=== PATIENT | male | born 1945 | race Caucasian/White ===

== ENCOUNTER 2016-08-23 08:14 | Inpatient (IN) | payer MEDICARE, OTHER ==
[2016-08-23] VITALS (14 sets, daily range): BP systolic 97–207; BP diastolic 60–108; PULSE 54–86; RESP 12–25; O2SAT 95–100
[~2016-08-23] VITALS: Ht 190.5 cm; Wt 110.6 kg
--- NOTE | 2016-08-23 08:11 | ED.REPORT ---
HPI-Cardiac Arrest Date of Service Aug 23, 2016 ED Provider: Dr. Stallworth Pt is 71 year old male with a history of COPD and CHF who presents to the ED via EMS, intubated, post cardiac arrest. Per EMS, he was with his on the way to a doctors appointment when he became extremely weak and collapsed. His contacted paramedics, but did not begin CPR. Upon first evaluation he was in asystolic cardiac arrest and no shock was advised. CPR was started and he was given 2 of epinephrine, Solu-Medrol and 5 of versed. He was intubated successfully and presents with an IO but no peripheral line. EMS report that he was brought to the ED recently with a respiratory arrest. Pt remains intubated and is unable to give a further history. Nursing Notes Stated Complaint: POST CARDIAC ARREST Chief Complaint: Post Cardiac Arrest Nursing Notes Reviewed: Yes Allergies: Coded Allergies: No Known Allergies (Unverified , 02/23/10) Scheduled Albuterol HFA (Proair HFA) 8.5 Gm Hfa.aer.ad 2 PUFFS INHALATION BID Amlodipine (Amlodipine) 5 Mg Tablet 2.5 MG PO DAILY Apixaban (Eliquis) 5 Mg Tablet 5 MG PO BID Atorvastatin (Lipitor) 80 Mg Tablet 80 MG PO DAILY Budesonide/Formoterol 160-4.5 mcg Inh (Symbicort 160-4.5 mcg Inh) 120 Puff Inhaler 2 PUFF INHALATION BID Carvedilol (Carvedilol) 12.5 Mg Tablet 25 MG PO BID Chlorthalidone (Chlorthalidone) 25 Mg Tablet 25 MG PO DAILY Morphine Sulfate ER (Morphine Sulfate ER) 15 Mg Tablet 45 MG PO BID Prednisone (Deltasone) 20 Mg Tablet 40 MG PO DAILY Scheduled PRN Morphine Sulfate (Morphine Sulfate) 15 Mg Tablet 15 MG PO Q3 PRN PRN For Moderate Pain General Time Seen by Provider: 08:14 Chief Complaint Cardiac arrest, found dwn Total Time Arrest to Arrival: 1 - 20 min Context: Resuscitation: Initial rhythm asystole Hx Obtained From: EMS Arrived By: Ambulance Onset Occurred: Just prior to arrival Symptom Duration: Since onset Similar Sx Previous: Yes Past Medical History Past Medical History COPD Diabetes CAD Emphesyma CHF History of intubation due to respiratory failure Past Surgical History Stent x1 Smoking History Former Smoker Ambulatory Status Independent Review of Systems Unable to Obtain ROS Intubated Physical Exam Initial Vital Signs Vital Signs (First) Date Time Temp Pulse Resp B/P Pulse Ox O2 Delivery O2 Flow Rate FiO2 08/23/16 09:37 99 08/23/16 10:55 34.5 86 119/70 Mechanical Ventilator 70 See Paper Chart Initial VS: Reviewed Alertness: Positive: Sedated, Unresponsive Intubated Resp Distress / Stridor: Positive: Intubated Diminished breath sounds on the left Cardiovascular: Heart rate NL, Regular rhythm, Heart sounds NL, No murmurs, Peripheral circulation NL Abdomen: Atraumatic, Soft Head / Eyes: Atraumatic, Normocephalic 3mm reactive Neck: Atraumatic Skin: Atraumatic, No rash, Warm, Dry Mental Status: Positive: Pharmacologically sedated, Unresponsive Interpretation & Diagnostics Lab Results Interpretation Result Diagram: 08/23/16 0820 08/23/16 0820 Test 08/23/16 08:20 08/23/16 08:39 08/23/16 08:46 White Blood Count 16.8th/mm3 (3.8-10.1) Red Blood Count 4.97mil/mm3 (4.40-5.80) Hemoglobin 14.3g/dL (13.8-17.2) Hematocrit 45.3% (41.0-50.0) Mean Corpuscular Volume 91.1fL (81-100) Mean Corpuscular Hemoglobin 28.8pg (27.0-35.0) Mean Corpuscular Hemoglobin Concent 31.6% (32.0-37.0) Red Cell Distribution Width 13.8% (12.3-15.4) Platelet Count 299bil/L (150-400) Neutrophils (%) (Auto) 60.7% (40-74) Lymphocytes (%) (Auto) 24.0% (14-46) Monocytes (%) (Auto) 11.3% (4-12) Eosinophils (%) (Auto) 2.0% (0-5) Basophils (%) (Auto) 0.3% (0-3) Prothrombin Time 10.2sec (8.1-12.5) Prothromb Time International Ratio 0.95ratio Magnesium Level 2.2mg/dL (1.6-2.6) Total Creatine Kinase 103U/L (21-232) Creatine Kinase MB 2.7ng/mL (0.0-10.4) Creatine Kinase MB % % (0.0-5.0) Troponin T 0.010ug/L (0.0-0.011) Pro-B-Type Natriuretic Peptide 1081pg/mL (0-376) Procalcitonin 0.05ng/mL (0.00-0.08) Hold Sylvester Top Tube Received (Received) Hold Urine Received (Received) General Lab Results Interp 1: Labs reviewed ECG Interpretation ECG Interpretation: Atrial flutter - 85 LBBB Time: 08:34 Interpreted by: ED physician X-Ray Chest Interpretation Chest Xray Interpretation: IMPRESSION: Endotracheal tube position normal, COPD. Chronic interstitial prominence, no pneumothorax or acute CHF found. Dictated by: Abhilash Chau M.D. on 08/23/2016 at 9:00 View: Portable, 1 view Interpretation / Wet Read by: Interpret - Radiologist CT Head Interpretation IMPRESSION: No trauma found, no hemorrhage or mass identified. Source of current symptoms is not seen. Moderate microvascular atherosclerotic change in the deep white matter of each hemisphere, previously present. Dictated by: Abhilash Chau M.D. on 08/23/2016 at 9:25 Study: Head CT no contrast Interpretation / Wet Read by: Interpret - Radiologist Procedures Arterial line attempted multiple times in R radial artery which was not successful. Maximum precautions. Central Line Placement Central Line Placement Note: Central line placed by Dr. Calhoun, directly supervised by myself. Time: 09:23 Procedure Performed by: ED resident Consent / Setup / Site Prep: No consent - emergent, Time-out performed, Needle aspirate performed, Oxygen administered, Pulse oximeter applied, patient monitor applied, Hand hygiene observed, Standard surgical scrub, Max barrier precaution, Sterile drapes applied, Position supine Skin Preparation Agent: Shurclens Local Anesthesia: Lidocaine 1% Side / Location / Ultrasound: Internal jugular right, Ultrasound assisted Catheter / Lumen / Technique: Catheter size, Triple lumen, Good blood return , Other Re-Eval/Medical Decision Source of Hx: Old records, Inletter Re-Evaluation/Progress #1: Time of Eval: 08:45 Re-Evaluation/Progress Note: Pt is rechecked, he is beginning to regain consciousness. He is able to open his eyes for a brief period of time. Re-Evaluation/Progress #2: Time of Eval: 09:30 Re-Evaluation/Progress Note: Intermittent spasm every 1-2 minutes of eyes opening, flexor spasm diffusely, thought to be seizure or shivering. Consultation #1: Referral / Consult Name: Marcia Cabrales MD Consulted With: Cardiology Call Returned at: 08:53 Customer Service Security Officer: Will see patient, Agrees with eval, Agrees with plan Consultation #2: Referral / Consult Name: Kristian Patterosn MD Consulted With: Anesthesia Call Returned at: 10:27 Customer Service Security Officer: Will see patient, Agrees with eval, Agrees with plan (Will start Art line and change ET tube ) Consultation #3: Referral / Consult Name: Demetri Bose MD Consulted With: Hospitalist Call Returned at: 11:07 Customer Service Security Officer: Will see patient, Agrees with eval, Agrees with plan, Accepts admit Counseled Regarding: Diagnosis, Lab results, Need for admission Discharge & Departure Impression: Primary Impression: Cardiopulmonary arrest Disposition: ADMITTED TO HOSPITAL All VS Reviewed: Yes Referrals: Melissa Perdue MD (PCP) Crit Care Except Billable Proc Time Spent: 30-74 minutes Services Performed: Patient management by me, Time spent at bedside, Reviewing test results, Reviewing imaging, Discussing patient care, Documentation in record, Time with fam/surrogate Scribe Attestation Portions of this note were transcribed by Madeline Davidson and Ann Lee. I, Dr. Stallworth personally performed the history, physical exam and medical decision-making; I reviewed and confirmed the accuracy of the information in the transcribed note. Signed by: Madeline Davidson and Bob Blackmon, 2016 1048 copies to: Melissa Perdue MD, Kirk H MD Aug 23, 2016 08:11 GEE DAVIDSON Aug 23, 2016 08:22 Ann Lee Aug 23, 2016 09:23 Intermittent spasm every 1-2 minutes of eyes opening, flexor spasm diffusely, thought to be seizure or shivering. Consultation #1: Referral / Consult Name: Marcia Cabrales MD Consulted With: Cardiology Call Returned at: 08:53 Customer Service Security Officer: Will see patient, Agrees with eval, Agrees with plan Consultation #2: Referral / Consult Name: Kristian Patterson MD Consulted With: Anesthesia Call Returned at: 10:27 Customer Service Security Officer: Will see patient, Agrees with eval, Agrees with plan (Will start Art line and change ET tube ) Consultation #3: Referral / Consult Name: Demetri Bose MD Consulted With: Hospitalist Call Returned at: 11:07 Customer Service Security Officer: Will see patient, Agrees with eval, Agrees with plan, Accepts admit Counseled Regarding: Diagnosis, Lab results, Need for admission Discharge & Departure Impression: Primary Impression: Cardiopulmonary arrest Disposition: ADMITTED TO HOSPITAL All VS Reviewed: Yes Referrals: Melissa Perdue MD (PCP) Crit Care Except Billable Proc Time Spent: 75-104 minutes Services Performed: Patient management by me, Time spent at bedside, Reviewing test results, Reviewing imaging, Discussing patient care, Documentation in record, Time with fam/surrogate Scribe Attestation Portions of this note were transcribed by Madeline Davidson and Ann Lee. I, Dr. Stallworth personally performed the history, physical exam and medical decision-making; I reviewed and confirmed the accuracy of the information in the transcribed note. Signed by: Madeline Davidson and Bob Blackmon, 2016 1048 copies to: Melissa Perdue MD, Kirk H MD Aug 23, 2016 08:11 GEE DAVIDSON Aug 23, 2016 08:22 Ann Lee Aug 23, 2016 09:23
[~2016-08-23 08:14] MED LIST: ALBU8.5H2 INHALATION; AMLO5TAB2 PO; APIX5TAB PO; ATOR80TA PO; CARV12.52 PO; HYG25 PO; MORP-32 PO; MORP15TA PO; PRED-508 PO; SYMINH INHALATION
[2016-08-23 08:35] LABS: BASOPHILS % (AUTO) 0.3 % (0-3); MONOCYTES % (AUTO) 11.3 % (4-12); Mean Corpuscular Hemoglobin 28.8 pg (27.0-35.0); Mean Corpuscular Volume 91.1 fL (81-100); NEUTROPHILS % (AUTO) 60.7 % (40-74); Platelet Count 299 bil/L (150-400)
[2016-08-23 08:54] LABS: TROPONIN T 0.01 ug/L (0.0-0.011)
--- NOTE | 2016-08-23 09:03 | DRSVH ---
PROCEDURE: X-RAY CHEST ONE VIEW, PORTABLE ([id number]) INDICATIONS: resp faiure TECHNIQUE: One view of the chest was acquired. COMPARISON: [facility], CR, XR CHEST 2VW, 07/03/2016, 16:10. [facility], CR, XR CHEST 2VW, 06/26/2016, 9:38. FINDINGS: Surgical changes and devices: Endotracheal tube in normal position, some form of monitoring device ov erlies the mid heart.. Lungs and pleura: No pleural effusions or pneumothorax. Lungs are abnormal with COPD previously doc umented and a chronic interstitial prominence. Mediastinum: Mediastinal contours appear normal. Heart size is normal. Bones and chest wall: No suspicious bony lesions. Overlying soft tissues appear unremarkable. IMPRESSION: Endotracheal tube position normal, COPD. Chronic interstitial prominence, no pneumothora x or acute CHF found. Dictated by: Abhilash Chau M.D. on 08/23/2016 at 9:00 Approved by: Abhilash Chau M.D. on 08/23/2016 at 9:01
[2016-08-23 09:04] LABS: Magnesium 2.2 mg/dL (1.6-2.6)
[2016-08-23] MEDS ORDERED: Acetaminophen IV 1,000 MG in IV Premix 1 EACH IV ONE (09:25)
[2016-08-23] MEDS ORDERED: Piperacillin-Tazo 3.375 Gm Inj 3.375 GM in Dextrose 5% Minibag Plus 50 ML IV ONE (09:25)
[2016-08-23] MEDS ORDERED: Magnesium Sulf 4 Gm/100 mL H2O 4 GM in IV Premix 1 EACH IV ONE (09:25)
--- NOTE | 2016-08-23 09:26 | DRSVH ---
PROCEDURE: CT BRAIN WITHOUT CONTRAST ([id number]) INDICATIONS: cardio pulmonray arrest TECHNIQUE: Noncontrast 4.5 mm thick angled axial sections acquired from the foramen magnum to the vertex, with c oronal reformats. COMPARISON: [facility], CT, CT BRAIN WO CON, 04/11/2016, 13:10. FINDINGS: Image quality: Excellent. CSF spaces: Basal cisterns are patent. No extra-axial fluid collections. The ventricles are symmet vinnie in size and shape. Brain: No intracranial bleeds or masses. There is cerebral volume loss for age, with resultant vent ricular and sulcal prominence. There are periventricular and deep white matter chronic small vessel ischemic changes. There is intracranial internal carotid artery atherosclerosis. Skull and face: Calvarium and visualized facial bones appear intact, without suspicious lesions. Sinuses: Visualized sinuses and mastoids are clear. IMPRESSION: No trauma found, no hemorrhage or mass identified. Source of current symptoms is not see n. Moderate microvascular atherosclerotic change in the deep white matter of each hemisphere, previo usly present. Dictated by: Abhilash Chau M.D. on 08/23/2016 at 9:25 Approved by: Abhilash Chau M.D. on 08/23/2016 at 9:25
--- NOTE | 2016-08-23 10:29 | DRSVH ---
PROCEDURE: X-RAY CHEST ONE VIEW, PORTABLE ([id number]) INDICATIONS: line placement TECHNIQUE: One view of the chest was acquired. COMPARISON: [facility], CR, XR CHEST 1VW (PORTABLE), 08/23/2016, 8:10. [facility], CR, XR CHEST 2VW, 07/03/2016, 16:10. FINDINGS: Surgical changes and devices: Endotracheal, nasogastric, and internal jugular vein central line are i n normal position, there is a mild alveolar edema pattern and also asymmetric alveolar infiltration o dez the right mid and upper lung consistent with chronic CHF pattern and superimposed right lung pneu monia Lungs and pleura: No pleural effusions or pneumothorax. Lungs are clear. Mediastinum: Mediastinal contours appear normal. Heart size is at or just above the upper limits of normal. Bones and chest wall: No suspicious bony lesions. Overlying soft tissues appear unremarkable. IMPRESSION: Lines and tubes in normal position, suspect right mid and upper lung pneumonia superimpos ed on COPD and chronic interstitial prominence. Heart size at or just above the upper limits of norm al and therefore a component of mild CHF may be superimposed. Dictated by: Abhilash Chau M.D. on 08/23/2016 at 10:27 Approved by: Abhilash Chau M.D. on 08/23/2016 at 10:28
[2016-08-23] MEDS ORDERED: Cisatracurium 2,000 mCg/mL 10 mL Inj ONE (10:52)
[2016-08-23] MEDS ORDERED: Propofol 10,000 mCg/mL 100 mL Inj ONE (10:59)
[2016-08-23 11:25] LABS: INR 0.95 ratio
[2016-08-23] MEDS ORDERED: Lactated Ringer's 1,000 ML IV SCH (11:34)
[2016-08-23] MEDS ORDERED: Insulin Human REGular Inj 100 UNIT in 0.9% Sodium Chloride-Pha MIX 100 ML IV SCH (11:34)
--- NOTE | 2016-08-23 11:34 | ABG ---
DateTimeAnalyzed 11:27:00 -_ pH ____7.267 - 7.350 7.450 pCO2 ___54.3__ -mmHg 35.0 45.0 pO2 ___46.5__ -mmHg 69.0 116 HCO3- ___23.9__ -mmol/L ABE ___-3.1__ -mmol/L tHb ___12.7__ -g/dL O2Hb ___75.4__ -% COHb ____1.0__ -% MetHb ____0.9__ -% sO2 ___76.9__ -% FIO2 ___70.0__ -% PRVC 20 - PEEP ___15.0__ -cmH2O Vt __500.0__ -L Drawn By RN - Date/Time Notified____ 11:34:00 -_ Spontaneous_RR ___20.0__ -b/min Oxygen Device 1 VENTILATOR - Notified By GJ - Notified Whom ERICA MENA MD -____ B 736 -mmHg tO2 ___13.4__ -Vol% Barrera test N/A -
[2016-08-23] MEDS ORDERED: fentaNYL-PF 50 mCg/mL 2 mL Inj IVPUSH PRN (11:35)
[2016-08-23] MEDS ORDERED: Ondansetron 2 mg/mL 2 mL Inj IVPUSH PRN (11:35)
[2016-08-23] MEDS ORDERED: Alum-Mag Hydrox-Simeth 30 mL Suspension PO PRN (11:35)
[2016-08-23] MEDS ORDERED: Sodium Chloride LOK Flush 10 mL Syringe IVFLUSH PRN ×2 (11:40)
[2016-08-23 11:44] LABS: Creatine Kinase 103 U/L (21-232)
[2016-08-23] MEDS ORDERED: Lactated Ringer's 1,000 ML IV ONE (11:55)
[2016-08-23] MEDS ORDERED: 0.9% Sodium Chloride 1,000 ML ONE (11:59)
[2016-08-23] MEDS: Lactated Ringer's 1,000 ML IV SCH ×2 (12:25→19:47)
[2016-08-23] MEDS: Pantoprazole 4 mg/mL 10 mL Inj IVPUSH SCH (12:29)
[2016-08-23] MEDS: LORazepam 100 mg/100 mL NS 100 MG in IV Premix 100 EACH IV SCH (12:52)
[2016-08-23] MEDS ORDERED: fentaNYL 2,500 mCg/250 mL Premix IV ONE (13:23)
[2016-08-23] MEDS: fentaNYL 2,500 mCg/250 mL 2,500 MCG in IV Premix 1 EACH IV SCH (13:27)
[2016-08-23] MEDS ORDERED: 0.9% Sodium Chloride 500 ML ONE (13:59)
[2016-08-23 15:05] LABS: Mean Corpuscular Hemoglobin 28.7 pg (27.0-35.0); Mean Corpuscular Volume 88.8 fL (81-100)
[2016-08-23 15:17] LABS: INR 0.96 ratio
[2016-08-23 15:39] LABS: Magnesium 2.9 mg/dL (1.6-2.6)
[2016-08-23 15:44] LABS: TROPONIN T 0.172 ug/L (0.0-0.011)
[2016-08-23] MEDS ORDERED: Vancomycin Dose per Pharmacist XX SCH (16:00)
[2016-08-23] MEDS ORDERED: NiCARdipine Inj 25 MG in Dextrose 5% 240 ML IV SCH (16:10)
[2016-08-23] MEDS ORDERED: Labetalol 5 mg/mL 4 mL Inj IVPUSH ONE (16:10)
--- NOTE | 2016-08-23 16:14 | ABG ---
DateTimeAnalyzed 16:07:00 -_ pH ____7.367 - 7.350 7.450 pCO2 ___36.6__ -mmHg 35.0 45.0 pO2 258 -mmHg 69.0 116 HCO3- ___20.5__ -mmol/L 22.0 26.0 ABE ___-3.7__ -mmol/L -2.0 2.0 tHb ___13.0__ -g/dL O2Hb ___97.9__ -% COHb ____0.6__ -% MetHb ____0.9__ -% sO2 ___99.4__ -% 25.0 FIO2 ___70.0__ -% PRVC 25 - PEEP ___15.0__ -cmH2O Vt __460.0__ -L Drawn By gj - Date/Time Notified____ 16:13:00 -_ Spontaneous_RR ___25.0__ -b/min Oxygen Device 1 VENTILATOR - Notified By gj - Notified Whom ERICA MENA MD -____ B 739 -mmHg tO2 ___18.4__ -Vol% Barrera test N/A -
[2016-08-23] MEDS ORDERED: Meropenem Inj 2,000 MG in 0.9% Sodium Chloride 100 ML IV SCH (16:30)
--- NOTE | 2016-08-23 16:40 | PCM.CHPMED ---
Subjective Date of Service: Aug 23, 2016 Primary Physician: Admitting Physician: Demetri Bose MD Primary Care Physician: Melissa Perdue MD Attending Physician: Demetri Bose MD Admit Status: From the Emergency Department Chief Complaint: Chief Complaint: Cardiac arrest History of Present Illness: This 79-year-old male with a history of COPD, CAD status post RCA stent, persistent A. fib on Eliquis, with recent cardiac arrest in March 2016 with postarrest hypothermia and discharge on 04/21/2016 presents to the emergency department by EMS due to witnessed at home cardiac arrest. History is obtained by the . Patient has more fatigued recently over the last couple of weeks and when attempting to take him to the doctor this morning around 7:30 AM the patient was able to ambulate to the car was extremely short of breath. instructed the patient to go back inside the house which he did, sitting on the couch. After a couple of minutes of having difficulty catching his breath the patient grabbed his throat and told his he was going to . At this time the patient began seizing. EMS was called and arrived within approximately 5 minutes. During this time the was not able to remove the patient from the couch or administer rescue breaths at the end of the seizure. When EMS arrived the patient had very shallow breaths and CPR was initiated as no pulses felt. Rhythm strip showed asystole. After epinephrine, Solu-Medrol, and Versed the patient was successfully intubated, and I will placed, and brought to the emergency department. denies any recent illness, ill contacts, cough, sputum production, diarrhea , chills, headache, increasing shortness of breath, chest pain, orthopnea, PND, but does endorse decreased appetite. In the ED his CT scan was negative for acute hemorrhage, chest x-ray confirmed placement of ET tube, and patient was started on hypothermic protocol. Patient was transferred to the floor where he was bolused with Nimbex up to 6 mg due to ongoing fine tremors/seizures. The patient was extremely difficult to ventilate due to high auto PEEP most likely attributed to the seizure activity. Patient sedated with propofol and Ativan, and fentanyl drip was added. Patient is currently 33, however this stroke was a patient intermittently achieves 34 despite best efforts. ABG was unobtainable but mixed venous gas was obtained with a pH of 7.67, PCO2 of 54.3, PO2 of 46.5, bicarbonate of 24, saturation of 76.9. Blood work on admission is as follows: White count of 16.8, hemoglobin of 14.3, hematocrit 45.3, and platelet count of 299. Sodium of 142, potassium of 5.5, chloride of 99, bicarbonate of 21, BUN of 21, creatinine 1.9 from baseline of 1.0, glucose of 233, lactic acid of 7.7, ALT elevated slightly at 45, proBNP is 1081, pro-calcitonin 0.05 PT/INR: 10.3/0.96 Review of Systems: Complete review of systems performed; pertinent positives and negatives per history of present illness. All other systems reviewed and are negative. PMH Past Medical History Cardiac arrest March 2016 Persistent atrial fibrillation: diagnosed 10/2015 in the setting of COPD exacerbation, now on Eliquis Large right sided paraspinous muscle hematoma in 10/2015 with warfarin (INR 1.6), HFrEF: diagnosed with EF 40-45% on Echo 01/2016 with inferior WMA CAD s/p inferior DC 2003 s/p RCA stent LBBB HTN HLD COPD: quit smoking 10/2015 Hx Any Other Health Problems?: YesHx Diabetes: YesBedside Blood Glucose: 163 Surgical History RCA stent placement Home Medications Albuterol HFA (Proair HFA) 8.5 Gm Hfa.aer.ad 2 PUFFS INHALATION BID Amlodipine (Amlodipine) 5 Mg Tablet 2.5 MG PO DAILY Apixaban (Eliquis) 5 Mg Tablet 5 MG PO BID Atorvastatin (Lipitor) 80 Mg Tablet 80 MG PO DAILY Budesonide/Formoterol 160-4.5 mcg Inh (Symbicort 160-4.5 mcg Inh) 120 Puff Inhaler 2 PUFF INHALATION BID Carvedilol (Carvedilol) 12.5 Mg Tablet 25 MG PO BID Chlorthalidone (Chlorthalidone) 25 Mg Tablet 25 MG PO DAILY Morphine Sulfate ER (Morphine Sulfate ER) 15 Mg Tablet 45 MG PO BID Prednisone (Deltasone) 20 Mg Tablet 40 MG PO DAILY Morphine Sulfate (Morphine Sulfate) 15 Mg Tablet 15 MG PO Q3 PRN PRN For Moderate Pain Allergies: Coded Allergies: No Known Allergies (Unverified , 02/23/10) Family History Family History No family history of cardiac disease Social History Hx Alcohol Use: Yes (seldom)Hx Substance Use: NoHx Tobacco Use: Yes Smoking Status: Former Smoker Living Arrangement: with Family Exam Vital Signs Vital Sign - Last Date Time Temp Pulse Resp B/P Pulse Ox O2 Delivery O2 Flow Rate FiO2 08/23/16 13:20 63 137/60 100 70 08/23/16 12:30 Ventilator 08/23/16 10:55 34.5 Additional Information: Gen.: Patient sedated and intubated HEENT: Pupils 2-3 mm, nonreactive, right IJ in place Cardiovascular: Irregular rate and rhythm with rate around 85, difficult to auscultate Respiratory: No areas of focal consolidation identified, coarse breath sounds throughout, endotracheal tube in place Abdomen: Positive bowel sounds, nondistended Extremities: Dry, no edema, capillary refill is approximate 10-12 seconds Neurological: Pupils as above, patient currently sedated Psych: Patient sedated Skin: No rashes noted Lab and Diagnostics Result Diagram: 08/23/16 1451 08/23/16 1451 X-Rays, CTs and MRIs Chest x-ray IMPRESSION: Lines and tubes in normal position, suspect right mid and upper lung pneumonia superimposed on COPD and chronic interstitial prominence. Heart size at or just above the upper limits of normal and therefore a component of mild CHF may be superimposed. Dictated by: Abhilash Chau M.D. on 08/23/2016 at 10:27 CT of brain IMPRESSION: No trauma found, no hemorrhage or mass identified. Source of current symptoms is not seen. Moderate microvascular atherosclerotic change in the deep white matter of each hemisphere, previously present. Dictated by: Abhilash Chau M.D. on 08/23/2016 at 9:25 12-lead ECG Atrial flutter with rate around 85 Assessment & Plan Assessment Problem list 1. cardiopulmonary arrest 2. elevated troponin 3. Acute leukocytosis likely secondary to stress reaction 4. Lactic acidosis with anion gap of 22 5. Acute kidney injury 6. Suspected anoxic brain injury Neurological: Reported cardiac arrest at home with asystole per EMS strips. Resuscitation field. Prior to arrest reports patient seizing on couch. Once admitted to the floor the patient continued to seize even after administration of propofol and Ativan. Nimbex 6 mg bolus was used stop seizures. Nimbex drip initiated and continues along with propofol and fentanyl. Keppra 500 twice a day started. Patient on hypothermia so sedation will continue Cardiovascular: Patient does have elevated troponin of 0.172 after a negative initial troponin. Blood pressure has been hypertensive with current blood pressure 190/100. Labetalol 20 being given with nicardipine drip if hypertension persists. Patient has persistent atrial flutter and is currently in atrial flutter. Troponin will be trended, echo ordered, but no anticoagulation this time as the patient is hypothermic. Respiratory: Patient is very difficult to ventilate. His current settings include an FiO2 of 0.7, PEEP of 15 with auto PEEP of 19, respirations 26, tidal volumes of approximately 460. Permissive acidosis due to difficulty with ventilation. It is questionable whether this cardiac arrest was set off due to COPD/asthma/reactive airway disease that was exacerbated due to the cold air that he has been avoiding was unable to avoid this. At this time there is no suspicion of infection as the white count is elevated without left shift, and after cardiac arrest, and pro-calcitonin is negative. We will continue to follow closely for any new suspicion of infection. Renal: Patient presents with a small increase in his creatinine of approximately 0.25. Does appear to be mildly dry but not excessively. Patient was given 3-5 L of fluid since presentation and is currently being maintained on lactated Ringer's at 200 mL an hour. Blood pressure is actually high her suspect that is a catheter will be resolved by tomorrow morning. We will continue to follow. Infection: The patient does have an elevated white count there is no left shift. Pro-calcitonin negative. He did have reported seizures which could have lead to aspiration, and we will start him on Zosyn overnight. Recheck pro- calcitonin in the a.m. along with a CBC. Should patient develop fevers well to a more extensive workup including viral PCR, streptozyme, urine strep antigen, Legionella, among others. Nutrition: Patient is nothing by mouth as he is currently intubated. We will visit nutrition in a day or so once the patient was rewarmed. Disposition: Patient is in critical condition after suffering a cardiopulmonary arrest etiology currently unclear. Patient has persistent seizures even after drinking cold, dose 3 mg of Nimbex, Ativan and propofol. Increasing Nimbex seems to control the seizures. Patient's prognosis remains guarded suspected anoxic brain injury due to greater than 5 minutes of respiratory arrest without attempted resuscitation Time spent: 2 hours Problems: Pain Evaluation: Adequate Pain Control GI Prophylaxis: Proton Pump Inhibitor VTE Prophylaxis Indicated: Contraindicated Resuscitation Status: CPR: Attempt Resuscitation Attending Statement The patient was seen and examined together with Dr. Miranda on 08/23/2016 and I agree with the history, exam and plan as outlined in the note above. Latrell Miranda DO Aug 23, 2016 16:40 Sanjiv Infante MD Sep 26, 2016 10:22
--- NOTE | 2016-08-23 16:50 | PCM.HPMED ---
Subjective Date of Service Aug 23, 2016 Primary Provider: Admitting Physician: Demetri Bose MD Primary Care Physician: Melissa Perdue MD Attending Physician: Demetri Bose MD Chief Complaint: Cardiac arrest History of Present Illness: Mr. Foreign Benitez is a 71 year old male with a history of COPD, CAD with an RCA stent, and CHF who presents to the ED via EMS, intubated, post cardiac arrest. Per EMS, he was with his on the way to a doctors appointment when he became extremely weak, began clutching at his throat, was unable to breathe and collapsed. His contacted paramedics, but did not begin CPR for the 5 minutes between his collapse and the arrival of EMS. Upon first evaluation he was in asystolic cardiac arrest and no shock was advised. CPR was started and he was given 2 of epinephrine, Solu-Medrol, and 5 of versed. He was intubated successfully brought to the ED. Pt remains intubated and sedated and is unable to give a further history. He was hospitalized recently 04/07 - 04/21/16 for cardiac arrest, tension pneumothorax, and COPD exacerbation. His states he has been having increased weakness over the last week, but denies him complaining of any chest pain, abdominal pain, nausea, vomiting, diarrhea, new joint pains, or new medication changes. She states he has been compliant with all of his medications. On admission, he was noted to be having episodes of seizure-like activity. Labs included WBC 17.3, Hb 12.3, K 5.5, Cr 1.39, glucose 233, procalcitonin 0.05, lactic acid 7.7. CXR showed possible right mid and upper lung pneumonia superimposed on COPD and chronic interstitial prominence. Brain CT showed no trauma found, no hemorrhage or mass identified. Source of current symptoms is not seen. Moderate microvascular atherosclerotic change in the deep white matter of each hemisphere, previously present. EKG showed atrial flutter and LBBB. After intubation, he was sedated on propofol and fentanyl, as well as lorazepam for seizures. He continued to have seizure like activity and had to be paralyzed with Nimbex. Review of Systems: Comprehensive review of systems conducted and was negative except for the pertinent positives listed above. Allergies Coded Allergies: No Known Allergies (Unverified , 02/23/10) Home Medications Albuterol inhaler Amlodipine 2.5 mg daily Eliquis 5 mg BID Atorvastatin 80 mg daily Symbicort inhaler Carvedilol 25 mg BID Chlorthalidone 25 mg daily Morphine sulfate ER 45 mg BID and 15 mg q3 PRN Prednisone 40 mg daily PMH Persistent atrial fibrillation: diagnosed 10/2015 in the setting of COPD exacerbation, now on Eliquis Large right sided paraspinous muscle hematoma in 10/2015 with warfarin (INR 1.6), Systolic congestive heart failure: diagnosed with EF 40-45% on Echo 01/2016 with inferior WMA Coronary artery disease s/p inferior NH 2002 s/p RCA stent Hypertension Hyperlipidemia COPD: Quit smoking 10/2015 Surgical History RCA stent Family History Unknown Social History Hx Alcohol Use: Yes (seldom) Hx Substance Use: No Hx Tobacco Use: Yes Smoking Status: Former Smoker Exam Vital Signs Vital Sign - Last Date Time Temp Pulse Resp B/P Pulse Ox O2 Delivery O2 Flow Rate FiO2 08/23/16 13:20 63 137/60 100 70 08/23/16 10:55 34.5 Mechanical Ventilator Exam General: Sedated and intubated, on cooling protocol. Seizure like activity witnessed. Head: Normocephalic, atraumatic. External ears normal. Eyes: Pupils equal and round, pupils constricted but reactive, fixed. Anicteric sclerae. Mouth: Mouth Normal, Mucous Membranes Dry Neck: Neck supple with full range of motion. No JVD. Chest & Lungs: Clear to auscultation bilaterally with no crackles, wheezes, or rhonchi. Cardiovascular: Regular Rate/Rhythm, Normal S1, Normal S2, No Murmurs/Rubs/ Gallops Abdomen: Non-tender, Non-distended, No masses, Hypoactive bowel tones, Soft Extremities: No cyanosis/clubbing/edema bilaterally Neurological: Sedated and intubated and paralyzed. Lab and Diagnostics Result Diagram: 08/23/16 1451 08/23/16 1319 Assessment & Plan Mr. Foreign Benitez is a 71 year old male with a history of COPD, CAD with an RCA stent, and CHF who presents to the ED via EMS, intubated, post cardiac arrest after collapsing suddenly. 1. Acute cardiac arrest. Present on admission. - Pt collapsed suddenly and had a 5 minute period of no CPR. He was found to be in asystole on arrival of EMS. Troponin 0.172. CKMB 10.7. - Cooling protocol initiated - Echocardiogram ordered - Continue to monitor on telemetry - Cardiology has been consulted and is managing. We appreciate their expertise. 2. Acute hypoxic hypercapnic respiratory failure. Present on admission. - Secondary to cardiac arrest, intubated in the field. Pt currently on mechanical ventilation. Initial ABG showed pH 7.267, pCO2 54.3, pO2 46.5, bicarb 23.9. - Sedation: Ativan, fentanyl, propofol - Dr. Infante of Pulmonology is following and managing mechanical ventilation. We appreciate his expertise. 3. Seizures, acute. Present on admission. - Secondary to hypoxic brain injury post cardiac arrest. Seizure like activity was noted on admission, despite administration of Ativan and propofol gtt. - Cooling protocol has been initiated. - Ativan gtt - Nimbex drip - Keppra 500 mg IV BID 4. Acute leukocytosis. Present on admission. - Pt presents with WBC 16.8 with normal diff. Likely secondary to steroid use. Procalcitonin was 0.05. Viral infection is possible. Urine looked cloudy. CXR showed possible right sided pneumonia. However, given normal diff and procalcitonin, infection is less likely. Given his seizures and right sided infiltrates, however, aspiration is possible. - Pt received Zosyn in ED. Will continue Zosyn. - UA ordered - Respiratory viral PCR ordered - Will continue to monitor CBC and procalcitonin 5. Hypertension, acute on chronic. - Pt had elevated blood pressure on admission, up to 190/100. - Labetalol PRN - Nicardipine gtt - Hold amlodipine and chlorthalidone 6. History of systolic congestive heart failure, chronic. Present on admission. - Last echocardiogram showed EF 60-65%, proximal inferior and inferoseptal hypokinesis, mild pulmonary hypertension; improved from echo 04/09/15 with EF 25- 30%. - Will repeat echocardiogram today. 7. Hyperglycemia, acute. Present on admission. - Glucose 233 on admission. - A1c ordered - Insulin gtt 8. Lactic acidosis, acute. Present on admission. Resolved. - Lactic acid was 7.7 on admission, likely secondary to pulmonary/cardiac ischemia due to cardiac arrest. Resolved with fluid resuscitation and mechanical ventilation. 9. COPD, chronic. - Hold albuterol and Symbicort inhalers. 10. Atrial fibrillation, chronic. Present on admission. - Hold Eliquis and carvedilol 11. Coronary artery disease, chronic. - Status post inferior NH in 2002 with RCA stent placement. 12. Hyperlipidemia, chronic. - Hold atorvastatin 13. Chronic pain. - Hold morphine sulfate - Bowel regimen as needed - Antiemetic as needed INPATIENT: Patient is admitted under inpatient status with expected length of stay greater than 2 midnights due to severity of presenting symptoms, risk of adverse event, and complexity of treatment plan. Pain Evaluation: Adequate Pain Control Time spent 60 minutes of critical care time were furnished in admission and stabilization of this patient. . Attending Statement The patient was seen and examined together with Dr. Yeboah on 08/23/2016 and I agree with the history, exam and plan as outlined in the note above. . copies to: Melissa Perdue MD, Andrew R Aug 23, 2016 15:49 Demetri Bose MD Aug 24, 2016 17:54
[2016-08-23 16:58] LABS: APPEARANCE,URINE CLEAR (CLEAR,HAZY); COLOR,URINE YELLOW (YELLOW); OCCULT BLOOD,URINE TRACE (NEGATIVE); PH,URINE 5.5 (5.0-8.0); UROBILINOGEN,URINE NORMAL (NORMAL)
[2016-08-23] MEDS: Esmolol 2,500 mg/250 mL NS 2,500,000 MCG in IV Premix 1 EACH IV SCH (19:05)
[2016-08-23 20:34] LABS: Mean Corpuscular Hemoglobin 28.8 pg (27.0-35.0); Mean Corpuscular Volume 86.9 fL (81-100)
[2016-08-23 20:48] LABS: INR 0.95 ratio
[2016-08-23] MEDS: Piperacillin-Tazo 3.375 Gm Inj 3.375 GM in Dextrose 5% Minibag Plus 50 ML IV SCH (21:05)
--- NOTE | 2016-08-23 21:05 | ABG ---
DateTimeAnalyzed 20:59:00 -_ pH ____7.384 - 7.350 7.450 pCO2 ___33.5__ -mmHg 35.0 45.0 pO2 122 -mmHg 69.0 116 HCO3- ___19.6__ -mmol/L 22.0 26.0 ABE ___-4.2__ -mmol/L -2.0 2.0 tHb ___13.5__ -g/dL O2Hb ___96.8__ -% COHb ____0.6__ -% MetHb ____0.9__ -% sO2 ___98.3__ -% 25.0 FIO2 ___40.0__ -% Drawn By LT - Date/Time Notified____ 21:04:00 -_ Notified By LT - Notified Whom __DR B 744 -mmHg tO2 ___18.5__ -Vol% Barrera test N/A -
[2016-08-23 21:09] LABS: Magnesium 2.5 mg/dL (1.6-2.6)
[2016-08-23 21:18] LABS: TROPONIN T 0.168 ug/L (0.0-0.011)
[2016-08-23] MEDS ORDERED: KCl 40 mEq/100 mL (CENTRAL) 40 MEQ in IV Premix 1 EACH IV ONE (22:55)
[2016-08-23] MEDS: 0.9% Sodium Chloride 1,000 ML IV SCH (23:48)
[2016-08-24] VITALS (11 sets, daily range): BP systolic 101–167; BP diastolic 54–76; PULSE 53–90; RESP 18–20; O2SAT 40–100
[2016-08-24] MEDS: Esmolol 2,500 mg/250 mL NS 2,500,000 MCG in IV Premix 1 EACH IV SCH ×3 (02:40→17:50)
[2016-08-24 02:42] LABS: Mean Corpuscular Hemoglobin 29.1 pg (27.0-35.0); Mean Corpuscular Volume 87.3 fL (81-100)
[2016-08-24 02:58] LABS: INR 0.97 ratio
[2016-08-24 03:25] LABS: Magnesium 2.2 mg/dL (1.6-2.6)
[2016-08-24 03:27] LABS: TROPONIN T 0.094 ug/L (0.0-0.011)
--- NOTE | 2016-08-24 05:04 | ABG ---
DateTimeAnalyzed 04:58:00 -_ pH ____7.269 - 7.350 7.450 pCO2 ___47.1__ -mmHg 35.0 45.0 pO2 102 -mmHg 69.0 116 HCO3- ___20.9__ -mmol/L 22.0 26.0 ABE ___-5.6__ -mmol/L -2.0 2.0 tHb ___12.8__ -g/dL O2Hb ___95.2__ -% COHb ____0.6__ -% MetHb ____0.9__ -% sO2 ___96.7__ -% 25.0 FIO2 ___40.0__ -% Drawn By LT - Date/Time Notified____ 05:03:00 -_ Notified By LT - Notified Whom RN, SHELLEY - B 748 -mmHg tO2 ___17.2__ -Vol% Barrera test N/A -
[2016-08-24] MEDS: Chlorhexidine 0.12% 15 mL Oral Solution MT SCH ×5 (05:18→20:42)
[2016-08-24] MEDS: Lactated Ringer's 1,000 ML IV SCH ×2 (07:24→19:06)
[2016-08-24] MEDS: Piperacillin-Tazo 3.375 Gm Inj 3.375 GM in Dextrose 5% Minibag Plus 50 ML IV SCH ×2 (07:53→20:42)
[2016-08-24] MEDS: Pantoprazole 4 mg/mL 10 mL Inj IVPUSH SCH (07:53)
[2016-08-24] MEDS: Cisatracurium Inj 200,000 MCG in 0.9% Sodium Chloride-Pha MIX 100 ML IV SCH ×2 (08:10→20:42)
[2016-08-24] MEDS ORDERED: Azithromycin Inj 500 MG in Dextrose 5% w/Vial Mate 250 ML IV SCH (08:30)
--- NOTE | 2016-08-24 08:38 | ABG ---
DateTimeAnalyzed 08:31:00 -_ pH ____7.296 - 7.350 7.450 pCO2 ___44.1__ -mmHg 35.0 45.0 pO2 117 -mmHg 69.0 116 HCO3- ___20.8__ -mmol/L 22.0 26.0 ABE ___-5.1__ -mmol/L -2.0 2.0 tHb ___12.7__ -g/dL O2Hb ___96.4__ -% COHb ____0.6__ -% MetHb ____1.0__ -% sO2 ___98.0__ -% 25.0 FIO2 ___40.0__ -% PEEP ____8.0__ -cmH2O Vt __450.0__ -L Drawn By MT - Date/Time Notified____ 08:37:00 -_ Spontaneous_RR ___20.0__ -b/min Oxygen Device 1 VENTILATOR - Notified By MT - Notified Whom Dr Cooeny - B 748 -mmHg tO2 ___17.3__ -Vol% Barrera test N/A -
[2016-08-24 08:43] LABS: Mean Corpuscular Hemoglobin 28.8 pg (27.0-35.0)
--- NOTE | 2016-08-24 08:55 | DRSVH ---
PROCEDURE: X-RAY CHEST ONE VIEW, PORTABLE ([id number]) INDICATIONS: INCREASED SHORTNESS OF BREATH TECHNIQUE: One view of the chest was acquired. COMPARISON: [facility], CR, XR CHEST 1VW (PORTABLE), 08/23/2016, 9:47. FINDINGS: Surgical changes and devices: ET tip projected to 5.7 cm of the monica. Stable positioning of right IJ CVL and nasogastric tube. Lungs and pleura: Widespread bilateral interstitial opacities redemonstrated. No pleural effusion or pneumothorax. Mediastinum: Mediastinal contours appear normal. Heart size is normal. Bones and chest wall: No suspicious bony lesions. Overlying soft tissues appear unremarkable. IMPRESSION: 1. Lines and tubes as above. 2. Diffuse interstitial opacities suggesting edema versus atypical pneumonia. Correlate clinically. Dictated by: Marcus Oliver RRA Interpreted: Abhilash Chau MD on 08/24/2016 at 8:53 Transcribed by: KATHY on 08/24/2016 at 8:54 Approved by: Abhilash Chau M.D. on 08/24/2016 at 13:26
[2016-08-24 08:56] LABS: INR 0.94 ratio
[2016-08-24 09:16] LABS: Magnesium 2.1 mg/dL (1.6-2.6); TROPONIN T 0.079 ug/L (0.0-0.011)
[2016-08-24] MEDS: Propofol Inj 1,000,000 MCG in IV Premix 1 EACH IV SCH ×2 (09:25→17:16)
[2016-08-24] MEDS: 0.9% Sodium Chloride 1,000 ML IV SCH (09:37)
[2016-08-24] MEDS: Albuterol-Ipratropium 3 mL Inhalation Solution NEB SCH ×3 (10:35→20:30)
--- NOTE | 2016-08-24 10:42 | PCM.PNMED ---
Subjective Date of Service Aug 24, 2016 Subjective Overnight: Cooling protocol continued but pt's temp has been difficult to maintain, dropping as low as 31.9 and high up to 34. Possibly fevers vs quality of cooling machine. Peak pressure was elevated up to 62 but improved with better control of seizures. He was hypertensive overnight, placed on Nicardipine. He became bradycardic on Nicardipine, which was stopped, and now maintaining normal BP and HR. Today: Continues on Nimbex, propofol, Ativan, and fentanyl gtt. Pt sedated and intubated, and history was unable to be obtained. Exam Vital Signs Vital Sign - Last Date Time Temp Pulse Resp B/P Pulse Ox O2 Delivery O2 Flow Rate FiO2 08/24/16 08:23 61 135/68 100 40 08/24/16 07:24 32.2 20 Mechanical Ventilator Intake and Output 08/23/16 08/23/16 08/24/16 Cumulative From/Thru 15:00 23:00 07:00 08/23/16 15:39 - 08/24/16 06:11 Intake Total 1802 ml 3697 ml 5499 ml Output Total 600 ml 870 ml 1470 ml Balance 1202 ml 2827 ml 4029 ml Intake IV Total 1802 ml 3697 ml 5499 ml Output Urine Total 600 ml 800 ml 1400 ml Gastric Drainage Total 0 ml 70 ml 70 ml # Bowel Movements 1 0 1 Exam General: Sedated and intubated, on cooling protocol. Head: Normocephalic, atraumatic. External ears normal. Eyes: Pupils equal and round. Anicteric sclerae. Mouth: Mouth Normal, Mucous Membranes Dry Neck: Neck supple with full range of motion. No JVD. Chest & Lungs: Clear to auscultation bilaterally with no crackles, wheezes, or rhonchi. Cardiovascular: Regular Rate/Rhythm, Normal S1, Normal S2, No Murmurs/Rubs/ Gallops Abdomen: Non-tender, Non-distended, No masses, Hypoactive bowel tones, Soft Extremities: No cyanosis/clubbing/edema bilaterally Neurological: Sedated and intubated and paralyzed. Lab and Diagnostics Result Diagram: 08/24/1681408/24/16814 Assessment & Plan Mr. Foreign Benitez is a 71 year old male with a history of COPD, CAD with an RCA stent, and CHF who presents to the ED via EMS, intubated, post cardiac arrest after collapsing suddenly. 1. Acute cardiac arrest. Present on admission. Stable. - Pt collapsed suddenly and had a 5 minute period of no CPR. He was found to be in asystole on arrival of EMS. Troponin 0.172, now decreasing. CKMB 10.7. Possibly secondary to respiratory failure due to bronchospasm rather than cardiac etiology. - Cooling protocol initiated - will start rewarming this afternoon. - Echocardiogram ordered - Continue to monitor on telemetry - Cardiology has been consulted and is managing. We appreciate their expertise. 2. Acute hypoxic hypercapnic respiratory failure. Present on admission. - Secondary to cardiac arrest vs bronchospasm, intubated in the field. Pt currently on mechanical ventilation. Initial ABG showed pH 7.267, pCO2 54.3, pO2 46.5, bicarb 23.9. - Sedation: Ativan, fentanyl, propofol gtt - Duoneb q6h - Dr. Infante of Pulmonology is following and managing mechanical ventilation. We appreciate his expertise. 3. Seizures, acute. Present on admission. Active. - Secondary to hypoxic brain injury post cardiac arrest. Seizure like activity was noted on admission, despite administration of Ativan and propofol gtt. - Cooling protocol has been initiated. - EEG pending - Ativan gtt - Nimbex drip - Keppra 500 mg IV BID 4. Acute leukocytosis. Present on admission. Improving. - Pt presents with WBC 16.8 with normal diff. Likely secondary to steroid use. Procalcitonin was 0.05. Viral infection is possible. Urine looked cloudy. CXR showed possible right sided pneumonia. However, given normal diff and procalcitonin, infection is less likely. Given his seizures and right sided infiltrates, however, aspiration is possible. - Pt received Zosyn in ED. Will continue Zosyn. - UA ordered - Respiratory viral PCR ordered - Will continue to monitor CBC and procalcitonin 5. Hypertension, acute on chronic. - Pt had elevated blood pressure on admission, up to 190/100. Was placed on Nicardipine gtt, which caused bradycardia overnight. Heart rate and blood pressure now normal off nicardipine. - Nicardipine gtt discontinued. - Hold amlodipine and chlorthalidone 6. History of systolic congestive heart failure, chronic. Present on admission. - Last echocardiogram showed EF 60-65%, proximal inferior and inferoseptal hypokinesis, mild pulmonary hypertension; improved from echo 04/09/15 with EF 25- 30%. - Will repeat echocardiogram today. 7. Hyperglycemia, acute. Present on admission. - Glucose 233 on admission. - A1c ordered - Insulin gtt 8. Lactic acidosis, acute. Present on admission. Resolved. - Lactic acid was 7.7 on admission, likely secondary to pulmonary/cardiac ischemia due to cardiac arrest. Resolved with fluid resuscitation and mechanical ventilation. 9. COPD, chronic. - Hold albuterol and Symbicort inhalers. - Duoneb q6h 10. Atrial fibrillation, chronic. Present on admission. - Hold Eliquis and carvedilol 11. Coronary artery disease, chronic. - Status post inferior [place] in 2002 with RCA stent placement. 12. Hyperlipidemia, chronic. - Hold atorvastatin 13. Chronic pain. - Hold morphine sulfate - Bowel regimen as needed - Antiemetic as needed INPATIENT: Patient is admitted under inpatient status with expected length of stay greater than 2 midnights due to severity of presenting symptoms, risk of adverse event, and complexity of treatment plan. GI Prophylaxis: Proton Pump Inhibitor VTE Mechanical Devices: Intermittant Pneumatic CD Resuscitation Status: CPR: Attempt Resuscitation Attending Statement The patient was seen and examined together with Dr. Yeboah on 08/24/2016 and I agree with the history, exam and plan as outlined in the note above. . Rodri Yeboah Aug 24, 2016 10:42 Demetri Bose MD Aug 24, 2016 17:56
--- NOTE | 2016-08-24 10:50 | PCM.PNMED ---
Subjective Date of Service Aug 24, 2016 Subjective Patient presented with cardiac arrest thought to be secondary to laryngospasm. Overnight late yesterday patient had blood pressure issues blood pressure spiking over 200/100 which was treated with nicardipine drip with the result of resolution with new bradycardia. Nicardipine was stopped. Temperature was also an issue this is thought to be mostly due to the machine. Patient is on Precedex due to seizures were not controlled with propofol and Ativan. Exam Vital Signs Vital Sign - Last Date Time Temp Pulse Resp B/P Pulse Ox O2 Delivery O2 Flow Rate FiO2 08/24/16 08:23 61 135/68 100 40 08/24/16 07:24 32.2 20 Mechanical Ventilator Intake and Output 08/23/16 08/23/16 08/24/16 Cumulative From/Thru 15:00 23:00 07:00 08/23/16 15:39 - 08/24/16 06:11 Intake Total 1802 ml 3697 ml 5499 ml Output Total 600 ml 870 ml 1470 ml Balance 1202 ml 2827 ml 4029 ml Intake IV Total 1802 ml 3697 ml 5499 ml Output Urine Total 600 ml 800 ml 1400 ml Gastric Drainage Total 0 ml 70 ml 70 ml # Bowel Movements 1 0 1 Exam Gen.: Patient sedated and intubated HEENT: Pupils 2-3 mm, nonreactive, right IJ in place Cardiovascular: Irregular rate and rhythm with rate around 85, difficult to auscultate Respiratory: No areas of focal consolidation identified, coarse breath sounds throughout, endotracheal tube in place Abdomen: Positive bowel sounds, nondistended Extremities: Dry, no edema, capillary refill is approximate 10-12 seconds Neurological: Pupils as above, patient currently sedated Psych: Patient sedated Skin: No rashes noted IVs and Medications Medications Reviewed: Medications were reviewed in detail Lab and Diagnostics Result Diagram: 08/24/1681408/24/16814 X-Rays, CTs and MRIs Chest X-ray IMPRESSION: 1. Lines and tubes as above. 2. Diffuse interstitial opacities suggesting edema versus atypical pneumonia. Correlate clinically. Dictated by: Marcus GROVES Interpreted: Abhilash Chau MD on 08/24/2016 at 8: 53 Chest x-ray IMPRESSION: Lines and tubes in normal position, suspect right mid and upper lung pneumonia superimposed on COPD and chronic interstitial prominence. Heart size at or just above the upper limits of normal and therefore a component of mild CHF may be superimposed. Dictated by: Abhilash Chau M.D. on 08/23/2016 at 10:[address] IMPRESSION: No trauma found, no hemorrhage or mass identified. Source of current symptoms is not seen. Moderate microvascular atherosclerotic change in the deep white matter of each hemisphere, previously present. Dictated by: Abhilash Chau M.D. on 08/23/2016 at 9:25 Chest x-ray IMPRESSION: Endotracheal tube position normal, COPD. Chronic interstitial prominence, no pneumothorax or acute CHF found. Dictated by: Abhilash Chau M.D. on 08/23/2016 at 9:00 Assessment & Plan Problem list 1. cardiopulmonary arrest likely secondary to laryngospasm 2. elevated troponin 3. Acute leukocytosis likely secondary to stress reaction 4. Lactic acidosis with anion gap of 22 5. Acute kidney injury 6. Suspected anoxic brain injury Neurological: Suspect anoxic brain injury. EEG today. Seizure activity noted yesterday that was not controlled with propofol and Ativan. Patient on Keppra along with propofol and Ativan. Precedex being used for paralysis Cardiovascular: Troponin decreasing did not get that more than 0.17. The rest was not likely to be of primary cardiac etiology. Blood pressure stable. Patient has a small ordered for any hypertensive urgencies. Currently in atrial flutter. Supportive care at this time. Continue hypothermia. Echo pending. Respiratory: Ventilation is much easier today. ABG 7.269, CO2 of 47.1, PO2 of 102, bicarbonate 21, saturation 96.7. Respiratory PCR is pending. Blood cultures negative. Sputum culture only reveals moderate normal heuy. X-ray pending this morning. Renal: No MARCELO. Patient output today has already been 870 mL. Infection: Patient's states that he is been feeling more lethargic and fatigued over the last couple of weeks. No reported fevers chills, cough, sputum production, or other signs of infection. Patient is currently being maintained on Zosyn for possible aspiration due to seizing. Tory panel is pending. Blood cultures negative. Sputum cultures normal huey. Nutrition: Currently nothing by mouth without supplement through tube Disposition: Patient undergoing EEG today to evaluate for seizure activity. Likely anoxic brain injury with very guarded outcome. Patient will be rewarmed this afternoon assessments will be made over the next couple of days. Seizures been difficult to control the patient is paralyzed as well as being maintained on Ativan and propofol although this did not control his seizures previously. Patient also on fentanyl for any pain. Time spent: One hour Pain Evaluation: Adequate Pain Control GI Prophylaxis: Proton Pump Inhibitor VTE Mechanical Devices: Intermittant Pneumatic CD Resuscitation Status: CPR: Attempt Resuscitation Attending Statement The patient was seen and examined together with Dr. Miranda on 08/24/2016 and I agree with the history, exam and plan as outlined in the note above. Latrell Miranda DO Aug 24, 2016 10:50 Sanjiv Infante MD Sep 14, 2016 09:16
--- NOTE | 2016-08-24 11:07 | DRSVH ---
PROCEDURE: X-RAY CHEST ONE VIEW, PORTABLE ([id number]) INDICATIONS: intubated TECHNIQUE: One view of the chest was acquired. COMPARISON: [facility], CR, XR CHEST 1VW (PORTABLE), 08/23/2016, 21:27. FINDINGS: Surgical changes and devices: Stable position ETT, nasogastric tube and right IJ CVL.. Lungs and pleura: Diffuse, widespread bilateral pulmonary interstitial and air space opacities are p resent with interval increase in consolidation within the left lung base. Mediastinum: Mediastinal contours appear normal. Heart size is normal. Bones and chest wall: No suspicious bony lesions. Overlying soft tissues appear unremarkable. IMPRESSION: 1. Pulmonary edema and/or diffuse bilateral pneumonia with interval increase in consolidation involvi ng the left lung base. 2. Stable support lines and tubes. Dictated by: Marcus GROVES Interpreted: Percy Rosa MD on 08/24/2016 at 11:05 Transcribed by: RUBA on 08/24/2016 at 11:06 Approved by: Percy Rosa M.D. on 08/24/2016 at 15:06
--- NOTE | 2016-08-24 11:30 | DRSVH ---
[facility] [address] [place] [address] Echocardiogram Report Name: IVETH HIGUERA WStudy Date : 08/24/2016 Height: 75 in Hospital Exam Location: [facility] Weight: 26 0 lb Gender: Male BSA: 2.5 m2 : 1945 Age: 71 yrs BP: 144/77 mmHg Reason For Study: Cardiac arrest Performed By: Emely López Referring Physician: Dr. Melissa Perdue Interpretation Summary The left ventricle is normal in size. The left ventricular ejection fraction is grossly normal. The ejection fraction is >50%. There are no obvious focal wall motion abnormalities noted but poor endocardial definition reduces the sensitivity for the detection of such. The right ventricle grossly appears normal in size with probable normal systolic function. The right ventricular systolic pressure is estimated at 38 mmHg assuming a right atrial pressure of 15 mm Hg. There is mild mitral regurgitation. The IVC is dilated (diameter is greater than 2.1 cm) and it collapses less than 50% with a sniff. This suggests a high right atrial pressure of 15 mm Hg. Procedure: A two-dimensional transthoracic echocardiogram with color flow and Doppler was performed in limited views only. The study quality was technically difficult. Comparison is made with the echocardiogram of . The heart rate ranged between 53-60 bpm during the study. Left Ventricle: The left ventricle is normal in size. There is normal left ventricular wall thickness. The left ventricular ejection fraction is grossly normal. The ejection fraction is >50%. There are no obvious focal wall motion abnormalities noted but poor endocardial definition reduces the sensitivity for the detection of such. Right Ventricle: The right ventricle grossly appears normal in size with probable normal systolic function. Atria: The interatrial septum is intact with no evidence for an atrial septal defect. Mitral Valve: The mitral valve is grossly normal. There is mild mitral regurgitation. Tricuspid Valve: The tricuspid valve is normal in structure and function. There is trace tricuspid regurgitation. The right ventricular systolic pressure is estimated at 38 mmHg assuming a right atrial pressure of 15 mm Hg. Great Vessels: The IVC is dilated (diameter is greater than 2.1 cm) and it collapses less than 50% with a sniff. This suggests a high right atrial pressure of 15 mm Hg. Pericardium/ Pleura There is no pericardial effusion. There is no pleural effusion. MMode/2D Measurements & Calculations LVIDd IVC diam LV castillo. diameter/BSA LV sys. diameter/BSA : 4.3 cm : 2.6 cm (cm/m^2): 1.7 (cm/m^2): 1.1 LVIDs : 2.7 cm FS: 36.0 % IVSd : 0.9cm LVPWd : 1.1 cm Doppler Measurements & Calculations TR max cornelia: 237.1 cm/sec MV V2 mean: 63.0 cm/sec TR max P.5 mmHg MV mean P.9 mmHg MV V2 VTI: 22.0 cm Reading Physician:KRISTINA
[2016-08-24] MEDS: LORazepam 100 mg/100 mL NS 100 MG in IV Premix 100 EACH IV SCH (13:43)
[2016-08-24] MEDS: fentaNYL 2,500 mCg/250 mL 2,500 MCG in IV Premix 1 EACH IV SCH (13:45)
[2016-08-24 16:04] LABS: Magnesium 1.9 mg/dL (1.6-2.6)
[2016-08-24 16:32] LABS: BASOPHILS % (AUTO) 0.1 % (0-3); EOSINOPHILS % (AUTO) 0 % (0-5); MONOCYTES % (AUTO) 6.2 % (4-12); Mean Corpuscular Hemoglobin 28.6 pg (27.0-35.0); Mean Corpuscular Volume 87.7 fL (81-100); NEUTROPHILS % (AUTO) 90.4 % (40-74); Platelet Count 181 bil/L (150-400)
[2016-08-24 21:08] LABS: Magnesium 1.9 mg/dL (1.6-2.6)
[2016-08-25] VITALS (12 sets, daily range): BP systolic 101–157; BP diastolic 53–70; PULSE 51–87; RESP 20; O2SAT 95–100
[2016-08-25] MEDS: Chlorhexidine 0.12% 15 mL Oral Solution MT SCH ×6 (00:20→20:04)
[2016-08-25] MEDS: Propofol Inj 1,000,000 MCG in IV Premix 1 EACH IV SCH ×5 (01:15→18:21)
[2016-08-25] MEDS: Esmolol 2,500 mg/250 mL NS 2,500,000 MCG in IV Premix 1 EACH IV SCH ×3 (01:25→15:42)
[2016-08-25] MEDS: Albuterol-Ipratropium 3 mL Inhalation Solution NEB SCH ×4 (02:30→20:09)
[2016-08-25 05:11] LABS: BASOPHILS % (AUTO) 0.1 % (0-3); EOSINOPHILS % (AUTO) 0.1 % (0-5); MONOCYTES % (AUTO) 5.4 % (4-12); Mean Corpuscular Hemoglobin 28.4 pg (27.0-35.0); Mean Corpuscular Volume 87.8 fL (81-100); NEUTROPHILS % (AUTO) 87.9 % (40-74); Platelet Count 173 bil/L (150-400)
--- NOTE | 2016-08-25 06:17 | ABG ---
DateTimeAnalyzed 06:12:00 -_ pH ____7.347 - 7.350 7.450 pCO2 ___39.5__ -mmHg 35.0 45.0 pO2 126 -mmHg 69.0 116 HCO3- ___21.1__ -mmol/L 22.0 26.0 ABE ___-3.7__ -mmol/L -2.0 2.0 tHb ___11.0__ -g/dL O2Hb ___97.2__ -% COHb ____0.7__ -% MetHb ____0.9__ -% sO2 ___98.8__ -% 25.0 FIO2 ___40.0__ -% PEEP ____8.0__ -cmH2O Vt __450.0__ -L Drawn By AF - Date/Time Notified____ 06:17:00 -_ Spontaneous_RR ___20.0__ -b/min Oxygen Device 1 VENTILATOR - Notified By AF - Notified Whom ____Nurse - B 766 -mmHg tO2 ___15.2__ -Vol% Barrera test N/A -
[2016-08-25] MEDS: Cisatracurium Inj 200,000 MCG in 0.9% Sodium Chloride-Pha MIX 100 ML IV SCH (06:44)
[2016-08-25] MEDS: Lactated Ringer's 1,000 ML IV SCH (07:32)
[2016-08-25] MEDS: Piperacillin-Tazo 3.375 Gm Inj 3.375 GM in Dextrose 5% Minibag Plus 50 ML IV SCH ×2 (07:36→20:04)
[2016-08-25] MEDS: Pantoprazole 4 mg/mL 10 mL Inj IVPUSH SCH (07:36)
--- NOTE | 2016-08-25 09:16 | PCM.PNMED ---
Subjective Date of Service Aug 25, 2016 Subjective Overnight: Hypothermia protocol initiated yesterday currently on the warming cycle however pt's temp has been difficult to maintain, continue to fluctuate 1- 2F. Possibly fevers vs quality of cooling machine. No twitching with Train of 4 overnight. Today: No acute events overnight. Continues on Nimbex, propofol, Ativan, and fentanyl gtt. Pt sedated and intubated, and history was unable to be obtained. Patient completed warming at roughly noon today, and Nimbex was discontinued at that time. Patient and to display generalized myoclonic seizures. Exam Vital Signs Vital Sign - Last Date Time Temp Pulse Resp B/P Pulse Ox O2 Delivery O2 Flow Rate FiO2 08/25/16 07:21 Ventilator 08/25/16 07:21 35.1 86 20 117/57 98 40 Intake and Output 08/24/16 08/24/16 08/25/16 Cumulative From/Thru 15:00 23:00 07:00 08/23/16 15:39 - 08/25/16 06:11 Intake Total 1989 ml 3224 ml 18924 ml Output Total 800 ml 2010 ml 4280 ml Balance 1189 ml 1214 ml 6432 ml Intake IV Total 1989 ml 3224 ml 43521 ml Output Urine Total 640 ml 1900 ml 3940 ml Gastric Drainage Total 160 ml 110 ml 340 ml # Bowel Movements 0 1 Exam General: Sedated and intubated, on cooling protocol. Head: Normocephalic, atraumatic. External ears normal. Eyes: Pupils equal and round. Anicteric sclerae. Mouth: Mouth Normal, Mucous Membranes Dry Neck: Neck supple with full range of motion. No JVD. Chest & Lungs: Clear to auscultation bilaterally with no crackles, wheezes, or rhonchi. Cardiovascular: Regular Rate/Rhythm, Normal S1, Normal S2, No Murmurs/Rubs/ Gallops Abdomen: Non-tender, Non-distended, No masses, Hypoactive bowel tones, Soft Extremities: No cyanosis/clubbing/edema bilaterally Neurological: Sedated and intubated and paralyzed. IVs and Medications Medications Reviewed: Medications were reviewed in detail Lab and Diagnostics Result Diagram: 08/25/16 0500 08/25/16 0500 X-Rays, CTs and MRIs Chest X-ray IMPRESSION: 1. Lines and tubes as above. 2. Diffuse interstitial opacities suggesting edema versus atypical pneumonia. Correlate clinically. Dictated by: Marcus Oliver RRA Interpreted: Abhilash Chau MD on 08/24/2016 at 8: 53 Chest x-ray IMPRESSION: Lines and tubes in normal position, suspect right mid and upper lung pneumonia superimposed on COPD and chronic interstitial prominence. Heart size at or just above the upper limits of normal and therefore a component of mild CHF may be superimposed. Dictated by: Abhilash Chau M.D. on 08/23/2016 at 10:[address] IMPRESSION: No trauma found, no hemorrhage or mass identified. Source of current symptoms is not seen. Moderate microvascular atherosclerotic change in the deep white matter of each hemisphere, previously present. Dictated by: bAhilash Chau M.D. on 08/23/2016 at 9:25 Chest x-ray IMPRESSION: Endotracheal tube position normal, COPD. Chronic interstitial prominence, no pneumothorax or acute CHF found. Dictated by: Abhilash Chau M.D. on 08/23/2016 at 9:00 Cardiac Echo Impressions Echocardiogram Report Interpretation Summary The left ventricle is normal in size. The left ventricular ejection fraction is grossly normal. The ejection fraction is >50%. There are no obvious focal wall motion abnormalities noted but poor endocardial definition reduces the sensitivity for the detection of such. The right ventricle grossly appears normal in size with probable normal systolic function. The right ventricular systolic pressure is estimated at 38 mmHg assuming a right atrial pressure of 15 mm Hg. There is mild mitral regurgitation. The IVC is dilated (diameter is greater than 2.1 cm) and it collapses less than 50% with a sniff. This suggests a high right atrial pressure of 15 mm Hg. Assessment & Plan Mr. Foreign Benitez is a 71 year old male with a history of COPD, CAD with an RCA stent, and CHF who presents to the ED via EMS, intubated, post cardiac arrest after collapsing suddenly. 1. Seizures, acute. Present on admission. Active. - Secondary to hypoxic brain injury post cardiac arrest. Seizure like activity was noted on admission, despite administration of Ativan and propofol gtt. - Cooling protocol has been initiated. - EEG canceled. MRI without contrast canceled. - Ativan gtt - Nimbex drip discontinued as soon as patient reached goal temperature at noon today. - Keppra increased from 500 mg IV BID to 1 g twice a day. 2. Acute cardiac arrest. Present on admission. Stable. - Pt collapsed suddenly and had a 5 minute period of no CPR. He was found to be in asystole on arrival of EMS. Troponin 0.172, now decreasing. CKMB 10.7. Possibly secondary to respiratory failure due to bronchospasm rather than cardiac etiology. - Cooling protocol initiated - will have completed warming cycle by noon today ( 08/25/16). - Echocardiogram as above. - Continue to monitor on telemetry - Cardiology has been consulted and is managing. We appreciate their expertise. 3. Acute hypoxic hypercapnic respiratory failure. Present on admission. - Secondary to cardiac arrest vs bronchospasm, intubated in the field. Pt currently on mechanical ventilation. Initial ABG showed pH 7.267, pCO2 54.3, pO2 46.5, bicarb 23.9. - Sedation: Ativan, fentanyl, propofol gtt - Duoneb q6h - Dr. Infante of Pulmonology is following and managing mechanical ventilation. We appreciate his expertise. 4. Acute leukocytosis. Present on admission. Improving. - Pt presents with WBC 16.8 with normal diff. Likely secondary to steroid use. Procalcitonin was 0.05. Viral infection is possible. Urine looked cloudy. CXR showed possible right sided pneumonia. However, given normal diff and procalcitonin, infection is less likely. Given his seizures and right sided infiltrates, however, aspiration is possible. - Pt received Zosyn in ED. Will continue Zosyn. - UA ordered - Respiratory viral PCR ordered - Will continue to monitor CBC and procalcitonin 5. Hypertension, acute on chronic. - Pt had elevated blood pressure on admission, up to 190/100. Was placed on Nicardipine gtt, which caused bradycardia overnight. Heart rate and blood pressure now normal off nicardipine. - Nicardipine gtt discontinued. - Hold amlodipine and chlorthalidone 6. History of systolic congestive heart failure, chronic. Present on admission. - Last echocardiogram showed EF 60-65%, proximal inferior and inferoseptal hypokinesis, mild pulmonary hypertension; improved from echo 04/09/15 with EF 25- 30%. - Will repeat echocardiogram today. 7. Hyperglycemia, acute. Present on admission. - Glucose 233 on admission. - A1c 6.3 - Insulin gtt 8. Lactic acidosis, acute. Present on admission. Resolved. - Lactic acid was 7.7 on admission, likely secondary to pulmonary/cardiac ischemia due to cardiac arrest. Resolved with fluid resuscitation and mechanical ventilation. 9. COPD, chronic. - Hold albuterol and Symbicort inhalers. - Duoneb q6h 10. Atrial fibrillation, chronic. Present on admission. - Hold Eliquis and carvedilol 11. Coronary artery disease, chronic. - Status post inferior [place] in 2002 with RCA stent placement. 12. Hyperlipidemia, chronic. - Hold atorvastatin 13. Chronic pain. - Hold morphine sulfate - Bowel regimen as needed - Antiemetic as needed INPATIENT: Patient is admitted under inpatient status with expected length of stay greater than 2 midnights due to severity of presenting symptoms, risk of adverse event, and complexity of treatment plan. Patient's outlook is extremely grim with little to no chance of recovery from a nontoxic central nervous system injury. Pain Evaluation: Adequate Pain Control GI Prophylaxis: Proton Pump Inhibitor VTE Mechanical Devices: Intermittant Pneumatic CD Resuscitation Status: CPR: Attempt Resuscitation Attending Statement The patient was seen and examined together with Dr. Wade on 08/25/2016 and I agree with the history, exam and plan as outlined in the note above. . MAINE WADE DO Aug 25, 2016 07:43 Demetri Bose MD Aug 26, 2016 08:09
--- NOTE | 2016-08-25 10:07 | DRSVH ---
PROCEDURE: X-RAY CHEST ONE VIEW, PORTABLE ([id number]) INDICATIONS: Intubated TECHNIQUE: One view of the chest was acquired. COMPARISON: [facility], CR, XR CHEST 1VW (PORTABLE), 08/24/2016, 9:08. FINDINGS: Surgical changes and devices: The central venous catheter, endotracheal tube, and NG tube are unchang ed. Lungs and pleura: Left basilar consolidation and pleural effusion are unchanged when compared with [facility] study dated 08/24/16. There is diffuse interstitial prominence. Mediastinum: Mediastinal contours appear normal. Heart size is normal. Bones and chest wall: No suspicious bony lesions. Overlying soft tissues appear unremarkable. IMPRESSION: 1. Stable tubes and lines. 2. Unchanged left basilar consolidation and pleural effusion. 3. Mild pulmonary edema. Dictated by: Constance Ribeiro M.D. on 08/25/2016 at 10:05 Approved by: Constance Ribeiro M.D. on 08/25/2016 at 10:06
[2016-08-25] MEDS ORDERED: Norepineph 8,000 mCg/250 mL NS 8,000 MCG in IV Premix 1 EACH IV SCH (13:00)
[2016-08-25] MEDS: LORazepam 100 mg/100 mL NS 100 MG in IV Premix 100 EACH IV SCH (13:09)
[2016-08-25] MEDS ORDERED: Norepinephrine 8,000 mCg/250 mL NS Premix IV ONE (13:09)
[2016-08-25] MEDS: fentaNYL 2,500 mCg/250 mL 2,500 MCG in IV Premix 1 EACH IV SCH (13:12)
[2016-08-25] MEDS: Dextrose 5% Lactated Ringer's 1,000 ML IV SCH (13:23)
--- NOTE | 2016-08-25 13:42 | PCM.PALLBR ---
Palliative Brief Note Date of Service Aug 25, 2016 . Consultation not initiated since /family have not been available and pt is just warming from cooling protocol. SZ on admit noted suggesting significant anoxic brain injury. Msg left with nsg to contact me if family arrives otherwise will initiate FCTM on saturday. Griselda Rapp MD Aug 25, 2016 13:42
--- NOTE | 2016-08-25 13:50 | PROG NOTE ---
[address] [address] PROGRESS NOTE PATIENT: IVETH HIGUERA : 1945 MR#: [id number] ADMIT: 08/23/2016 JOB ID: [id number] DATE: 08/25/2016 PULMONARY CRITICAL CARE FOLLOWUP NOTE: PROBLEM LIST: 1. Status post asystolic arrest. 2. Atrial fibrillation. 3. Heart failure with reduced ejection fraction. 4. Coronary artery disease. 5. Hypertension. 6. COPD. SUBJECTIVE: None. OBJECTIVE: Temperature 36.4, pulse 87, respiratory rate 20 with ventilator set at 20, blood pressure 131/62. O2 sat on FiO2 of 35%, PEEP of 5 is 95%. General appearance: Sedated on ventilator. Pupils about 1.5 mm. Chest: Fairly good breath sounds bilaterally. Mid and upper lung mcginnis are clear. Maybe somewhat more diminished at the bases. Heart: Somewhat distant tones. Heart tones otherwise seem normal. Seem relatively regular at this point, though monitor shows atrial fibrillation with irregular rhythm. Abdomen: Soft. Slightly distended. Quiet. Extremities: Cool, though the patient is undergoing reversal of hypothermia. LABORATORY: Stat glucose 102. While white cell count is 16,700 with 87 polymorphonuclears, 6 lymphocytes, 5 monocytes. Hemoglobin 10.9 and slowly decreasing. Platelet count 173,000 and slowly decreasing. Sodium 143, potassium 4.8, chloride 112, CO2 of 21, BUN 16, creatinine 0.7. Calcium is 7.6, magnesium 1.8. Bilirubin, transaminases, and alkaline phosphatase normal. Total protein 3.9 with an albumin of 2.6. The patient was unable to get an EEG yesterday because of the cisatracurium. Discussion was held regarding [employer] MRI. In fact, arrangements were made with Radiology as well as anesthesiology, who graciously planned on pushing meds in the MRI suite in order to accomplish the MRI. However, as the patient's temperature passed 36 he began to have seizures. Initially noted a focal seizure of the left foot as the sheet started moving. However, with examination he has diffuse seizures involving the left foot, right foot, right chest and abdomen, and right buccal area, as well as some of the left lip. Seems to be more right-sided than left but does certainly generalize. ASSESSMENT: Asystolic witnessed cardiac arrest. Doing rather poorly. There was concern that he was having seizures when he first came in. He was being treated with Keppra, Ativan, and propofol. We will need to increase the Keppra as well as the propofol. Given a total of 3 mg of Ativan IV push. Subsequently given 10 mg of propofol push. Keppra will be increased. Prognosis is extremely poor. Do not see how an MRI is going to particularly help given that the prognosis associated with the seizures is virtually zero. Currently we are able to ventilate him. This was a problem when he first came in, with difficulty ventilating him, which in retrospect was probably due to seizures. Currently has a peak pressure of 27, plateau of 17, FiO2 of 0.35, PEEP of 8, with minimal auto PEEP as measured, PEEP is 10, respiratory rate of 20, and a tidal volume of 450. His O2 sat is currently staying 98%. ASSESSMENT: Discussed with the treating hospitalist team. Plan made to cancel his [employer] MRI. PLAN: 1. Increase the Keppra to 1 g b.i.d. giving a stat dose now. 2. IV Ativan. 3. IV propofol. 4. Family will be contacted and prognosis discussed. TIME: Time spent so far in critical care is 91 minutes.
[2016-08-25] MEDS: DEXTROSE 5% IV SCH (20:04)
[2016-08-25] MEDS: LEVETIRACETAM IV SCH (20:04)
[2016-08-25] MEDS: 0.9% Sodium Chloride 1,000 ML IV SCH (20:05)
[2016-08-26] VITALS (9 sets, daily range): BP systolic 89–150; BP diastolic 48–65; PULSE 64–108; RESP 9–20; O2SAT 94–98
[2016-08-26] MEDS: Esmolol 2,500 mg/250 mL NS 2,500,000 MCG in IV Premix 1 EACH IV SCH ×2 (00:10→07:27)
[2016-08-26] MEDS: Dextrose 5% Lactated Ringer's 1,000 ML IV SCH (00:17)
[2016-08-26] MEDS: Propofol Inj 1,000,000 MCG in IV Premix 1 EACH IV SCH ×3 (00:18→07:55)
[2016-08-26] MEDS: Chlorhexidine 0.12% 15 mL Oral Solution MT SCH ×3 (00:18→07:54)
[2016-08-26] MEDS ORDERED: 0.9% Sodium Chloride 500 ML ONE ×2 (01:48)
[2016-08-26] MEDS: Albuterol-Ipratropium 3 mL Inhalation Solution NEB SCH ×2 (02:39→09:10)
[2016-08-26 05:00] LABS: Mean Corpuscular Volume 89.4 fL (81-100)
--- NOTE | 2016-08-26 05:06 | ABG ---
DateTimeAnalyzed 05:01:00 -_ pH ____7.350 - 7.350 7.450 pCO2 ___38.5__ -mmHg 35.0 45.0 pO2 ___82.3__ -mmHg 69.0 116 HCO3- ___20.7__ -mmol/L 22.0 26.0 ABE ___-4.0__ -mmol/L -2.0 2.0 tHb ___10.2__ -g/dL O2Hb ___94.5__ -% COHb ____0.8__ -% MetHb ____1.0__ -% sO2 ___96.2__ -% 25.0 FIO2 ___35.0__ -% PEEP ____8.0__ -cmH2O Set_RR ___20.0__ -b/min Vt __450.0__ -L Drawn By MK - Date/Time Notified____ 05:06:00 -_ Oxygen Device 1 VENTILATOR - B 769 -mmHg tO2 ___13.6__ -Vol% Barrera test N/A -
[2016-08-26 05:47] LABS: Magnesium 1.6 mg/dL (1.6-2.6)
[2016-08-26] MEDS: LORazepam 100 mg/100 mL NS 100 MG in IV Premix 100 EACH IV SCH (06:07)
[2016-08-26] MEDS ORDERED: Mag Sulf 4 Gm/100 mL IV Premix (Mag < 1.6 & Creat < 2) IV ONE (06:35)
[2016-08-26] MEDS: Pantoprazole 4 mg/mL 10 mL Inj IVPUSH SCH (07:54)
[2016-08-26] MEDS: LEVETIRACETAM IV SCH (07:54)
[2016-08-26] MEDS: Piperacillin-Tazo 3.375 Gm Inj 3.375 GM in Dextrose 5% Minibag Plus 50 ML IV SCH (07:54)
[2016-08-26] MEDS: DEXTROSE 5% IV SCH (07:54)
[2016-08-26] MEDS ORDERED: Propofol 10 mg/mL 20 mL Inj IVPUSH PRN ×2 (10:40→10:53)
[2016-08-26] MEDS ORDERED: fentaNYL-PF 50 mCg/mL 2 mL Inj IVPUSH PRN (10:40)
[2016-08-26] MEDS: fentaNYL 2,500 mCg/250 mL 2,500 MCG in IV Premix 1 EACH IV SCH (12:21)
--- NOTE | 2016-08-26 14:30 | PROG NOTE ---
[address] [address] PROGRESS NOTE PATIENT: IVETH HIGUERA : 1945 MR#: [id number] ADMIT: 08/23/2016 JOB ID: [id number] DATE: 08/26/2016 PULMONARY CRITICAL CARE NOTE: PROBLEM LIST: 1. Status post asystolic arrest. 2. Atrial fibrillation. 3. Heart failure with reduced ejection fraction. 4. Coronary artery disease. 5. Hypertension. 6. COPD. 7. Generalized tonic clonic seizure disorder. SUBJECTIVE: None. OBJECTIVE: Temperature 36.5, pulse mid 60s. Respiratory rate 20 with ventilator set at 20, blood pressure 116/53, O2 sat on FiO2 35%, PEEP of 8, is 97%. I and O shows 5.2 L in, 2.5 L out. Sedated on ventilator. Pupils about 1 mm bilaterally. Chest: Somewhat diminished breath sounds. Clear anteriorly. Heart: Somewhat distant tones. Heart tones seem normal. Slightly irregular rhythm. Abdomen is soft. Relatively quiet. Nondistended. Extremities, 2+ edema, both upper extremities. 1+ pedal edema. LABORATORY DATA: Shows a white count of 11,500. Differential not available. Hemoglobin slowly decreasing at 10.4. Platelet count 158,000, slowly decreasing. Sodium 141, potassium 3.9, chloride 109, CO2 is 20. BUN 16, creatinine 0.1. Calcium 7.4 with an albumin of 2.5. Magnesium 1.6, repleted and currently 2.5. AST mildly elevated, 55. ALT normal, 22. Alkaline phos and bilirubin both normal. Arterial blood gases on FiO2 of 35%, PEEP of 8, respiratory rate of 20, and tidal volume of 450, show a pO2 of 82, pCO2 of 38, a pH of 7.35. ASSESSMENT: Seizure disorder. No convulsive activity noted with the patient currently on Ativan, propofol, as well as Keppra. Yesterday, we had a significant problem with the seizures. Finally we were able to control the motor activity. Unfortunately, we do not have an electroencephalogram tech this weekend. If it is necessary, will get an electroencephalogram tomorrow. However, had a discussion with the hospitalist team. Subsequently, we had a family conference. The current situation was outlined. Discussed the prognosis and recovery. Prognosis is extremely poor with chance of meaningful recovery being essentially negligible. This is his 3rd or possibly even 4th episode in the last year or so with two episodes in the past three months. The family is of the opinion he would not want life support, certainly would not want discharge to a care facility with limited cognitive function. says that he has been failing in the last month and sister had a discussion with the patient when his was dying and he felt that functional recovery was the important point and did opt to extubate his . Family is unanimously of the opinion that he would not want to continue with this, with the prognosis being so extremely poor, with decision is unanimous that he be extubated to comfort measures with assurances of controlling pain, anxiety, and seizures. PLAN: 1. Seizure disorder. Makes prognosis for meaningful recovery virtually zero. Decision was made to proceed with compassionate extubation due to the extremely poor chances of recovery with any meaningful cognitive recovery. All drips will be stopped. He will be extubated. Will be treated with fentanyl, propofol, and Ativan pushes and infusions. 2. Hypercarbic respiratory failure. Extubate as per comfort care measures. TIME SPENT: 60 minutes.
--- NOTE | 2016-08-26 20:09 | PCM.DC.MED ---
Discharge Summary Date of Service Aug 26, 2016 Dates of Hospitalization Date of Hospital Admission Aug 23, 2016 at 11:11 Date of Discharge: Aug 26, 2016 Providers: Admitting Physician: Demetri Bose MD Primary Care Physician: Melissa Perdue MD Attending Physician: Demetri Bose MD Procedures XRay, CTs & MRIs Chest X-ray IMPRESSION: 1. Lines and tubes as above. 2. Diffuse interstitial opacities suggesting edema versus atypical pneumonia. Correlate clinically. Dictated by: Marcus Oliver RRA Interpreted: Abhilash Chau MD on 08/24/2016 at 8: 53 Chest x-ray IMPRESSION: Lines and tubes in normal position, suspect right mid and upper lung pneumonia superimposed on COPD and chronic interstitial prominence. Heart size at or just above the upper limits of normal and therefore a component of mild CHF may be superimposed. Dictated by: Abhilash Chau M.D. on 08/23/2016 at 10:[address] IMPRESSION: No trauma found, no hemorrhage or mass identified. Source of current symptoms is not seen. Moderate microvascular atherosclerotic change in the deep white matter of each hemisphere, previously present. Dictated by: Abhilash Chau M.D. on 08/23/2016 at 9:25 Chest x-ray IMPRESSION: Endotracheal tube position normal, COPD. Chronic interstitial prominence, no pneumothorax or acute CHF found. Dictated by: Abhilash Chau M.D. on 08/23/2016 at 9:00 Cardiac Echo Impression Echocardiogram Report Interpretation Summary The left ventricle is normal in size. The left ventricular ejection fraction is grossly normal. The ejection fraction is >50%. There are no obvious focal wall motion abnormalities noted but poor endocardial definition reduces the sensitivity for the detection of such. The right ventricle grossly appears normal in size with probable normal systolic function. The right ventricular systolic pressure is estimated at 38 mmHg assuming a right atrial pressure of 15 mm Hg. There is mild mitral regurgitation. The IVC is dilated (diameter is greater than 2.1 cm) and it collapses less than 50% with a sniff. This suggests a high right atrial pressure of 15 mm Hg. Brief History Mr. Foreign Benitez is a 71 year old male with a history of COPD, CAD with an RCA stent, and CHF who presents to the ED via EMS, intubated, post cardiac arrest. Per EMS, he was with his on the way to a doctors appointment when he became extremely weak, began clutching at his throat, was unable to breathe and collapsed. His contacted paramedics, but did not begin CPR for the 5 minutes between his collapse and the arrival of EMS. Upon first evaluation he was in asystolic cardiac arrest and no shock was advised. CPR was started and he was given 2 of epinephrine, Solu-Medrol, and 5 of versed. He was intubated successfully brought to the ED. Pt remains intubated and sedated and is unable to give a further history. He was hospitalized recently 04/07 - 04/21/16 for cardiac arrest, tension pneumothorax, and COPD exacerbation. His states he has been having increased weakness over the last week, but denies him complaining of any chest pain, abdominal pain, nausea, vomiting, diarrhea, new joint pains, or new medication changes. She states he has been compliant with all of his medications. On admission, he was noted to be having episodes of seizure-like activity. Labs included WBC 17.3, Hb 12.3, K 5.5, Cr 1.39, glucose 233, procalcitonin 0.05, lactic acid 7.7. CXR showed possible right mid and upper lung pneumonia superimposed on COPD and chronic interstitial prominence. Brain CT showed no trauma found, no hemorrhage or mass identified. Source of current symptoms is not seen. Moderate microvascular atherosclerotic change in the deep white matter of each hemisphere, previously present. EKG showed atrial flutter and LBBB. After intubation, he was sedated on propofol and fentanyl, as well as lorazepam for seizures. He continued to have seizure like activity and had to be paralyzed with Nimbex. Hospital Course Discussed the patient's situation with the patient's family in a conference, and outlined the situation, explained the patient's very poor prognosis, and offered the choice of compassionate extubation vs investigating brain function with head CT and EEG. The family ultimately decided to compassionately extubate today. Patient was extubated at 11:40 AM and most medications and fluids were discontinued. He was kept on propofol, fentanyl, and Ativan for comfort. He at 12:30 PM on 08/26/16 from acute hypoxic respiratory failure. Exam Vital Signs (Last) Date Time Temp Pulse Resp B/P Pulse Ox O2 Delivery O2 Flow Rate FiO2 08/26/16 11:53 36.4 108 9 89/55 Nasal Cannula 2.00 08/26/16 11:35 94 35 Test 08/23/16 08:20 08/23/16 14:51 08/23/16 16:00 08/23/16 16:22 Hemoglobin A1c 6.3% (4.8-5.6) Pro-B-Type Natriuretic Peptide 1081pg/mL (0-376) Procalcitonin 0.05ng/mL (0.00-0.08) Lactic Acid Level 1.5mmol/L (0.4-2.0) Hold Urine Received (Received) Urine Color Yellow (YELLOW) Urine Appearance Clear (CLEAR,HAZY) Urine pH 5.5 (5.0-8.0) Urine Specific Garibaldi 1.020 (1.003-1.035) Urine Protein Negativemg/dL (NEG,TRACE) Urine Glucose (UA) Negativemg/dL (NEGATIVE) Urine Ketones Negativemg/dL (NEGATIVE) Urine Occult Blood Trace (NEGATIVE) Urine Nitrite Negative (NEGATIVE) Urine Bilirubin Negative (NEGATIVE) Urine Urobilinogen Normalmg/dL (NORMAL) Urine Leukocyte Esterase Negative (NEGATIVE) Urine RBC 3-10/hpf (0-2) Urine WBC 0-5/hpf (0-5) Urine Epithelial Cells Occasional/hpf (NONE-MOD) Urine Crystals Uric acid crystals (NONE Urine Bacteria None/hpf (NONE-FEW) Urine Hyaline Casts Occasional/lpf (NONE) Urine Granular Casts Occasional (NONE SEEN) Urine Waxy Casts None seen (NONE SEEN) Urine Red Blood Cell Casts None seen (NONE SEEN) Urine White Blood Cell Casts None seen (NONE SEEN) Urine Mucus None seen (None Seen) Urine Trichomonas None seen (NONE SEEN) Urine Yeast None (NONE SEEN) Urinalysis Comment None Urine Culture Reflexed Not indicated Test 08/24/16 02:30 08/24/16 08:15 08/25/16 05:00 08/26/16 04:58 Hold Sylvester Top Tube Received (Received) Prothrombin Time 10.0sec (8.1-12.5) Prothromb Time International Ratio 0.94ratio Total Creatine Kinase 112U/L (21-232) Creatine Kinase MB 14.6ng/mL (0.0-10.4) Creatine Kinase MB % 13.0% (0.0-5.0) Troponin T 0.079ug/L (0.0-0.011) Neutrophils (%) (Auto) 87.9% (40-74) Lymphocytes (%) (Auto) 6.2% (14-46) Monocytes (%) (Auto) 5.4% (4-12) Eosinophils (%) (Auto) 0.1% (0-5) Basophils (%) (Auto) 0.1% (0-3) White Blood Count 11.5th/mm3 (3.8-10.1) Red Blood Count 3.59mil/mm3 (4.40-5.80) Hemoglobin 10.4g/dL (13.8-17.2) Hematocrit 32.1% (41.0-50.0) Mean Corpuscular Volume 89.4fL (81-100) Mean Corpuscular Hemoglobin 29.0pg (27.0-35.0) Mean Corpuscular Hemoglobin Concent 32.4% (32.0-37.0) Red Cell Distribution Width 14.0% (12.3-15.4) Platelet Count 158bil/L (150-400) Sodium Level 141mEq/L (134-144) Potassium Level 3.9mEq/L (3.5-5.2) Chloride Level 109mEq/L (97-108) Carbon Dioxide Level 20mmol/L (18-29) Blood Urea Nitrogen 16mg/dL (8-27) Creatinine 1.01mg/dL (0.76-1.27) Estimat Glomerular Filtration Rate 77mL/min (>59) Glucose Level 131mg/dL (60-99) Calcium Level 7.4mg/dL (8.5-10.1) Total Bilirubin 0.2mg/dL (0.0-1.2) Aspartate Amino Transf (AST/SGOT) 55U/L (0-50) Alanine Aminotransferase (ALT/SGPT) 23U/L (0-44) Alkaline Phosphatase 65U/L (25-160) Total Protein 3.9g/dL (6.4-8.4) Albumin 2.5g/dL (3.4-5.0) Prealbumin 18mg/dL (20-40) Test 2/12/17 09:25 Magnesium Level 2.5mg/dL (1.6-2.6) Discharge Medications Discharge Medications Albuterol HFA (Proair HFA) 8.5 Gm Hfa.aer.ad 2 PUFFS INHALATION BID (Reported) Amlodipine (Amlodipine) 5 Mg Tablet 2.5 MG PO DAILY Prescribed by: KAMERON JEAN MD Apixaban (Eliquis) 5 Mg Tablet 5 MG PO BID (Reported) Atorvastatin (Lipitor) 80 Mg Tablet 80 MG PO DAILY (Reported) Budesonide/Formoterol 160-4.5 mcg Inh (Symbicort 160-4.5 mcg Inh) 120 Puff Inhaler 2 PUFF INHALATION BID (Reported) Carvedilol (Carvedilol) 12.5 Mg Tablet 25 MG PO BID Prescribed by: KAMERON JEAN MD Chlorthalidone (Chlorthalidone) 25 Mg Tablet 25 MG PO DAILY Prescribed by: KAMERON JEAN MD Morphine Sulfate ER (Morphine Sulfate ER) 15 Mg Tablet 45 MG PO BID Prescribed by: KAMERON JEAN MD Prednisone (Deltasone) 20 Mg Tablet 40 MG PO DAILY Prescribed by: KAMERON JEAN MD As needed Morphine Sulfate (Morphine Sulfate) 15 Mg Tablet 15 MG PO Q3 PRN PRN For Moderate Pain Prescribed by: KAMERON JEAN MD Attending Statement The patient was seen and examined together with Dr. Yeboah on 08/26/2016 and I agree with the history as outlined in the note above. . copies to: Melissa Perdue MD, Andrew R Aug 26, 2016 20:09 Demetri Bose MD Aug 28, 2016 07:31
== END 2016-08-26 12:30 | disposition expired | DRG 296 ==
LOC: SED 08:14 → PCC 11:11 → CCU 11:17
PROVIDERS: ADMIT Internal Medicine; ATTEND Internal Medicine
PROC: 5A1945Z Respiratory Ventilation, 24-96 Consecutive Hours (ICD-10-PCS; principal; 2016-08-23)
PROC: 02HV33Z Insertion of Infusion Device into Superior Vena Cava, Percutaneous Approach (ICD-10-PCS; 2016-08-23)
PROC: 4A033R1 Measurement of Arterial Saturation, Peripheral, Percutaneous Approach (ICD-10-PCS; 2016-08-23)
PROC: 6A4Z0ZZ Hypothermia, Single (ICD-10-PCS; 2016-08-23)
DX: I46.9 Cardiac arrest, cause unspecified (principal); J96.01 Acute respiratory failure with hypoxia; J96.02 Acute respiratory failure with hypercapnia; G93.1 Anoxic brain damage, not elsewhere classified; E87.2 Acidosis; I50.22 Chronic systolic (congestive) heart failure; R56.9 Unspecified convulsions; J44.9 Chronic obstructive pulmonary disease, unspecified; Z87.891 Personal history of nicotine dependence; I48.1 Persistent atrial fibrillation; Z79.01 Long term (current) use of anticoagulants; Z86.74 Personal history of sudden cardiac arrest; Z95.5 Presence of coronary angioplasty implant and graft; I10 Essential (primary) hypertension; E78.5 Hyperlipidemia, unspecified; D72.829 Elevated white blood cell count, unspecified; E11.65 Type 2 diabetes mellitus with hyperglycemia; Z51.5 Encounter for palliative care